=== PATIENT | female | born 2000 | race African-American/Black ===

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

== ENCOUNTER 2020-06-04 22:03 | Emergency (ER) | payer OTHER, SELFPAY ==
[2020-06-04 22:33] LABS: Pregnancy Test - Urine (BHCG) Negative (Negative)
[2020-06-04 22:34] LABS: Clarity Clear (Clear); Glucose, Urine (Dipstick) Negative (Negative); Ketone, Urine Negative (Negative); Leukocyte Negative (Negative); Nitrite Negative (Negative); Pregu Control Background? CLEAR/WHITE (CLR/WHITE); Pregu Control Bar Appear? YES (CONTROL BAR); Protein, Urine (Dipstick) Negative (Neg-Trace); Specific Gravity 1.025 (1.002-1.036); Specific Gravity, Urine 1.025 (1.005-1.030); pH, Urine 7.5 (5.0-9.0)
[2020-06-04 22:35] LABS: Bilirubin Negative (Negative); Blood, Urine Negative (Negative)
[2020-06-05 21:40] LABS: Chlamydia by PCR Not Detected (NotDetected); GC by PCR Not Detected (NotDetected)
== END 2020-06-04 22:40 | disposition home or self-care (01) ==
LOC: BURERS 22:03
DX: N94.6 Dysmenorrhea, unspecified (principal)
CPT/HCPCS: 81003; 81025; 87491; 87591; 99284

== ENCOUNTER 2020-12-15 21:22 | Emergency (ER) | payer SELFPAY ==
[2020-12-15] MEDS ORDERED: Boostrix 0.5 ML (Tdap) VIAL ONE (21:32)
== END 2020-12-15 21:57 | disposition left against medical advice (07) ==
LOC: BURERS 21:22
DX: S61.011A Laceration without foreign body of right thumb without damage to nail, initial encounter (principal); W26.0XXA Contact with knife, initial encounter
CPT/HCPCS: 90471; 90715

== ENCOUNTER 2022-02-13 22:49 | Emergency (ER) | payer SELFPAY ==
[2022-02-13] MEDS ORDERED: HYDROcodone/Acetaminophen 5/325 mg Tablet ONE (23:08)
[2022-02-13] MEDS ORDERED: AMOXicillin 250 MG CAP ONE (23:09)
== END 2022-02-13 23:17 | disposition home or self-care (01) ==
LOC: BURERS 22:49
DX: K02.9 Dental caries, unspecified (principal)
CPT/HCPCS: 99282

== ENCOUNTER 2022-06-16 14:20 | Emergency (ER) | payer SELFPAY ==
[2022-06-16] MEDS ORDERED: Penicillin V Potassium 250 MG TAB ONE ×2 (15:56→15:57)
[2022-06-16] MEDS ORDERED: Ibuprofen 200 MG TAB ONE (15:56)
== END 2022-06-16 15:59 | disposition home or self-care (01) ==
LOC: BURERS 14:20
DX: K04.7 Periapical abscess without sinus (principal); K02.9 Dental caries, unspecified
CPT/HCPCS: 99282

== ENCOUNTER 2023-01-03 13:07 | Emergency (ER) | payer SELFPAY ==
[2023-01-03] MEDS ORDERED: Acetaminophen 500 MG TAB ONE (13:43)
[2023-01-03] MEDS ORDERED: Clindamycin 150 MG CAP ONE (13:43)
== END 2023-01-03 13:50 | disposition home or self-care (01) ==
LOC: BURERS 13:07
DX: K04.7 Periapical abscess without sinus (principal)
CPT/HCPCS: 99282

== ENCOUNTER 2023-01-25 07:40 | Emergency (ER) | payer SELFPAY | END 2023-01-25 08:30 | disposition home or self-care (01) | LOC: BURERS 07:40 | DX: T25.222A Burn of second degree of left foot, initial encounter (principal); T31.0 Burns involving less than 10% of body surface; X19.XXXA Contact with other heat and hot substances, initial encounter | CPT/HCPCS: 99283 ==

== ENCOUNTER 2024-03-21 09:36 | Emergency (ER) | payer OTHER, SELFPAY ==
[2024-03-21 10:29] LABS: Hematocrit 37.5 % (36.0-47.0); Hemoglobin 12.2 g/dL (12.0-16.0); Mean Corpuscular HGB CONC 32.6 g/dL (32.0-36.0); Mean Corpuscular Hemoglobin 28.5 pg (27.0-31.0); Mean Corpuscular Volume 87.6 fl (78.0-98.0); Mean Platelet Volume 5.9 fL (7.4-10.4); Platelet Count 304 10x3/uL (130-400); RBC Distribution Width 11.6 % (11.5-14.5); Red Blood Cell (RBC) Count 4.28 mill/uL (4.20-5.40); White Blood Cell (WBC) Count 6.1 10x3/uL (4.8-10.8)
[2024-03-21 10:31] LABS: Bilirubin Negative (Negative); Blood, Urine Negative (Negative); Clarity Clear (Clear); Glucose, Urine (Dipstick) Negative (Negative); Ketone, Urine Negative (Negative); Leukocyte Negative (Negative); Nitrite Negative (Negative); Protein, Urine (Dipstick) Negative (Neg-Trace); Specific Gravity, Urine 1.025 (1.005-1.030); Urobilinogen 0.2 mg/dL (Less than 2); pH, Urine 5.5 (5.0-9.0)
[2024-03-21 10:33] LABS: Pregnancy Test - Urine (BHCG) Negative (Negative); Pregu Control Background? CLEAR/WHITE (CLR/WHITE); Pregu Control Bar Appear? YES (CONTROL BAR); Specific Gravity 1.025 (1.002-1.036)
[2024-03-21 10:40] LABS: Eosinophils 2 % (0-10); Lymphocytes 67 % (21-51); MDiff Complete? YES; Monocytes 6 % (0-10); Neutrophil 24 % (42-75); Platelet Adequacy Comment Appears Adequate
[2024-03-21 10:41] LABS: ALT (SGPT) 18 U/L (8-55); AST (SGOT) 14 U/L (5-34); Albumin 3.8 g/dL (3.5-5.0); Alkaline Phosphatase 125 U/L (40-110); Anion Gap 13 mmol/L (10-20); BUN (Urea Nitrogen) 9 mg/dL (7.0-18.7); Bilirubin, Total 0.4 mg/dL (0.2-1.2); Calc. Creatinine Clearance 0 mL/min (70-130); Calcium 9.5 mg/dL (7.8-10.44); Carbon Dioxide 22 mmol/L (22-29); Chloride 108 mmol/L (98-107); Estimated GFR 102; Globulin 3.7 g/dL (2.4-3.5); Glucose 93 mg/dL (70-105); Potassium 3.7 mmol/L (3.5-5.1); Protein, Total 7.5 g/dL (6.0-8.3); Sodium 139 mmol/L (136-145)
[2024-03-21 10:41] LABS: Bacteria/HPF Rare-Few HPF (None Seen); CAUTI Indications for Culture Pelvic or flank pain; RBC/HPF None Seen HPF (0-3); Urine Culture Reflex No No; WBC/HPF None Seen HPF (0-3)
[2024-03-21 10:42] LABS: Troponin I Less than 0.010 ng/mL (< 0.028)
== END 2024-03-21 10:55 | disposition home or self-care (01) ==
LOC: BURERS 09:36
DX: R07.9 Chest pain, unspecified (principal); R10.9 Unspecified abdominal pain
CPT/HCPCS: 36415; 80053; 81001; 81025; 84484; 85025; 93005; 99285

== ENCOUNTER 2024-06-13 17:18 | Emergency (ER) | payer OTHER | END 2024-06-13 17:57 | disposition home or self-care (01) | LOC: BURERS 17:18 | DX: K04.7 Periapical abscess without sinus (principal) | CPT/HCPCS: 41800; 99282 ==

== ENCOUNTER 2024-06-14 21:54 | Emergency (ER) | payer OTHER ==
[2024-06-14] MEDS ORDERED: Lidocaine 1% PF 5 ML VIAL ONE (22:10)
== END 2024-06-14 22:32 | disposition home or self-care (01) ==
LOC: BURERS 21:54
DX: K04.7 Periapical abscess without sinus (principal)
CPT/HCPCS: 41800